=== PATIENT | female | born 1945 | race Caucasian/White ===

== ENCOUNTER 2020-06-26 17:19 | Inpatient (IN) | payer MEDICARE ==
[2020-06-26] MEDS ORDERED: traMADol HCl 50 MG TAB PO PRN (18:41)
[2020-06-26] MEDS ORDERED: oxyCODONE 5 MG TAB PO SCH (21:00)
[2020-06-26] MEDS: oxyCODONE 5 MG TAB PO PRN (21:32)
[2020-06-26] MEDS: Pregabalin 50 MG CAP PO SCH (21:34)
[2020-06-26] MEDS: Atorvastatin Calcium 40 MG TAB PO SCH (21:36)
[2020-06-26] MEDS: Ibuprofen 200 MG TAB PO SCH (21:39)
[2020-06-26] MEDS: Cyclobenzaprine 10 MG TAB PO PRN (21:41)
[2020-06-26] MEDS: CLORAZEPATE DIPOTASSIUM 3.75 MG PO SCH (22:44)
[2020-06-26] MEDS: PRAZOSIN HCL 2 MG PO SCH (22:44)
[2020-06-26] MEDS: Acetaminophen 325 MG TAB PO SCH (23:45)
[2020-06-27 05:28] LABS: #Eosinphils 0.1 thou/uL (0.0-0.7); #Lymphocytes 0.6 thou/uL (1.20-3.40); #Monocytes 0.4 thou/uL (0.11-0.59); #Neutrophils 2.9 thou/uL (1.40-6.50); %Basophils 0.6 % (0.0-1.0); %Eosinophils 2.7 % (0.0-10.0); %Lymphocytes 14.9 % (21.0-51.0); %Monocytes 10.4 % (0.0-10.0); %Neutrophils 71.5 % (42.0-75.0); Hemoglobin 9.7 g/dL (12.0-16.0); Manual Diff?? NO; Mean Corpuscular HGB CONC 33.5 g/dL (32.0-36.0); Mean Corpuscular Hemoglobin 32.2 pg (27.0-31.0); Mean Corpuscular Volume 96.2 fL (78.0-98.0); Mean Platelet Volume 6.5 fL (7.4-10.4); Platelet Count 147 thou/uL (130-400); RBC Distribution Width 14.9 % (11.5-14.5); Red Blood Cell (RBC) Count 3.01 mill/uL (4.20-5.40)
[2020-06-27] MEDS: Mometasone/Formoterol 200/5 60 PUFF INH SCH ×2 (05:33→17:38)
[2020-06-27] MEDS: Acetaminophen 325 MG TAB PO SCH ×3 (05:36→17:38)
[2020-06-27] MEDS: Ibuprofen 200 MG TAB PO SCH ×3 (05:37→21:23)
[2020-06-27] MEDS: Rivaroxaban 10 MG TAB PO SCH (05:37)
[2020-06-27 05:41] LABS: ALT (SGPT) 7 U/L (8-55); AST (SGOT) 11 U/L (5-34); Albumin 2.7 g/dL (3.4-4.8); Alkaline Phosphatase 69 U/L (40-110); Anion Gap 10 mmol/L (10-20); BUN (Urea Nitrogen) 9 mg/dL (9.8-20.1); Bilirubin, Total 1.1 mg/dL (0.2-1.2); Calc. Creatinine Clearance 92 mL/min (70-130); Calcium 7.8 mg/dL (7.8-10.44); Carbon Dioxide 27 mmol/L (23-31); Chloride 102 mmol/L (98-107); Globulin 2.3 g/dL (2.4-3.5); Glucose 97 mg/dL (83-110); Potassium 4.2 mmol/L (3.5-5.1); Sodium 135 mmol/L (136-145)
[2020-06-27] MEDS ORDERED: Non-Formulary Item 1 EACH (Rivaroxaban [Xarelto] 20 MG Tablet) PO SCH (09:00)
[2020-06-27] MEDS ORDERED: Rivaroxaban 10 MG TAB PO SCH (09:00)
[2020-06-27] MEDS: Potassium Chloride 20 MEQ TAB PO SCH ×3 (09:04→17:39)
[2020-06-27] MEDS: Pregabalin 50 MG CAP PO SCH ×2 (09:04→20:37)
[2020-06-27] MEDS: Multivitamin W/ Minerals 1 TAB PO SCH (09:04)
[2020-06-27] MEDS: Venlafaxine HCl XR 75 MG CAP PO SCH (09:04)
[2020-06-27] MEDS: Fluticasone Propionate Nasal Spray 16 gm Bottle NASAL SCH (09:05)
[2020-06-27] MEDS: PRAZOSIN HCL 2 MG PO SCH ×2 (09:06→20:29)
[2020-06-27] MEDS: oxyCODONE 5 MG TAB PO PRN ×2 (09:12→17:45)
[2020-06-27] MEDS: CLORAZEPATE DIPOTASSIUM 3.75 MG PO SCH (20:29)
[2020-06-27] MEDS: Atorvastatin Calcium 40 MG TAB PO SCH (20:37)
[2020-06-28] MEDS: Acetaminophen 325 MG TAB PO SCH ×4 (00:38→18:11)
[2020-06-28] MEDS: Ibuprofen 200 MG TAB PO SCH ×3 (05:42→21:31)
[2020-06-28] MEDS: Mometasone/Formoterol 200/5 60 PUFF INH SCH ×2 (05:43→18:13)
[2020-06-28] MEDS: Rivaroxaban 10 MG TAB PO SCH (05:43)
[2020-06-28] MEDS: Pregabalin 50 MG CAP PO SCH ×2 (08:39→21:30)
[2020-06-28] MEDS: Venlafaxine HCl XR 75 MG CAP PO SCH (08:39)
[2020-06-28] MEDS: Fluticasone Propionate Nasal Spray 16 gm Bottle NASAL SCH (08:39)
[2020-06-28] MEDS: Multivitamin W/ Minerals 1 TAB PO SCH (08:39)
[2020-06-28] MEDS: Potassium Chloride 20 MEQ TAB PO SCH ×2 (08:40→18:15)
[2020-06-28] MEDS: PRAZOSIN HCL 2 MG PO SCH ×2 (08:40→21:30)
[2020-06-28] MEDS: oxyCODONE 5 MG TAB PO PRN (10:07)
[2020-06-28] MEDS: CLORAZEPATE DIPOTASSIUM 3.75 MG PO SCH (21:30)
[2020-06-28] MEDS: Atorvastatin Calcium 40 MG TAB PO SCH (21:32)
[2020-06-28] MEDS: Triamcinolone 0.1% Cream 15 GM TUBE TOP PRN (21:36)
[2020-06-29] MEDS: Acetaminophen 325 MG TAB PO SCH ×4 (00:49→18:17)
[2020-06-29] MEDS: Ibuprofen 200 MG TAB PO SCH ×3 (05:14→21:10)
[2020-06-29] MEDS: Rivaroxaban 10 MG TAB PO SCH (05:16)
[2020-06-29] MEDS: Mometasone/Formoterol 200/5 60 PUFF INH SCH ×2 (05:16→18:18)
[2020-06-29] MEDS: Multivitamin W/ Minerals 1 TAB PO SCH (08:33)
[2020-06-29] MEDS: Fluticasone Propionate Nasal Spray 16 gm Bottle NASAL SCH (08:33)
[2020-06-29] MEDS: PRAZOSIN HCL 2 MG PO SCH ×2 (08:34→21:19)
[2020-06-29] MEDS: Pregabalin 50 MG CAP PO SCH ×2 (08:34→21:10)
[2020-06-29] MEDS: Venlafaxine HCl XR 75 MG CAP PO SCH (08:36)
[2020-06-29] MEDS: oxyCODONE 5 MG TAB PO PRN (08:36)
[2020-06-29] MEDS: Atorvastatin Calcium 40 MG TAB PO SCH (21:10)
[2020-06-29] MEDS: CLORAZEPATE DIPOTASSIUM 3.75 MG PO SCH (21:24)
[2020-06-30] MEDS: Acetaminophen 325 MG TAB PO SCH ×5 (00:52→23:26)
[2020-06-30] MEDS: Ibuprofen 200 MG TAB PO SCH ×3 (06:00→20:22)
[2020-06-30] MEDS: Rivaroxaban 10 MG TAB PO SCH (06:02)
[2020-06-30] MEDS: Mometasone/Formoterol 200/5 60 PUFF INH SCH ×2 (06:02→18:47)
[2020-06-30] MEDS: Multivitamin W/ Minerals 1 TAB PO SCH (08:20)
[2020-06-30] MEDS: Venlafaxine HCl XR 75 MG CAP PO SCH (08:21)
[2020-06-30] MEDS: Pregabalin 50 MG CAP PO SCH ×2 (08:21→20:20)
[2020-06-30] MEDS: Fluticasone Propionate Nasal Spray 16 gm Bottle NASAL SCH (08:24)
[2020-06-30] MEDS: PRAZOSIN HCL 2 MG PO SCH ×2 (08:25→20:22)
[2020-06-30] MEDS: oxyCODONE 5 MG TAB PO PRN (19:06)
[2020-06-30] MEDS: Atorvastatin Calcium 40 MG TAB PO SCH (20:22)
[2020-06-30] MEDS: CLORAZEPATE DIPOTASSIUM 3.75 MG PO SCH (20:22)
[2020-07-01] MEDS: Acetaminophen 325 MG TAB PO SCH ×3 (05:29→17:54)
[2020-07-01] MEDS: Ibuprofen 200 MG TAB PO SCH ×3 (05:30→21:25)
[2020-07-01] MEDS: Rivaroxaban 10 MG TAB PO SCH (05:31)
[2020-07-01] MEDS: Mometasone/Formoterol 200/5 60 PUFF INH SCH ×2 (05:32→17:54)
[2020-07-01 06:41] LABS: #Eosinphils 0.1 thou/uL (0.0-0.7); #Lymphocytes 0.7 thou/uL (1.20-3.40); #Monocytes 0.2 thou/uL (0.11-0.59); #Neutrophils 2.6 thou/uL (1.40-6.50); %Basophils 0.6 % (0.0-1.0); %Eosinophils 1.9 % (0.0-10.0); %Monocytes 6.2 % (0.0-10.0); %Neutrophils 72.2 % (42.0-75.0); Hemoglobin 9.5 g/dL (12.0-16.0); Mean Corpuscular HGB CONC 32.5 g/dL (32.0-36.0); Mean Corpuscular Hemoglobin 31.3 pg (27.0-31.0); Mean Corpuscular Volume 96.3 fL (78.0-98.0); Mean Platelet Volume 7.2 fL (7.4-10.4); Platelet Count 144 thou/uL (130-400); RBC Distribution Width 14.9 % (11.5-14.5); Red Blood Cell (RBC) Count 3.03 mill/uL (4.20-5.40); White Blood Cell (WBC) Count 3.6 thou/uL (4.8-10.8)
[2020-07-01 06:56] LABS: ALT (SGPT) 7 U/L (8-55); AST (SGOT) 12 U/L (5-34); Albumin 2.6 g/dL (3.4-4.8); Alkaline Phosphatase 76 U/L (40-110); Anion Gap 9 mmol/L (10-20); BUN (Urea Nitrogen) 12 mg/dL (9.8-20.1); Bilirubin, Total 0.7 mg/dL (0.2-1.2); Calc. Creatinine Clearance 90 mL/min (70-130); Calcium 7.7 mg/dL (7.8-10.44); Carbon Dioxide 27 mmol/L (23-31); Chloride 102 mmol/L (98-107); Globulin 2.2 g/dL (2.4-3.5); Glucose 108 mg/dL (83-110); Potassium 3.7 mmol/L (3.5-5.1); Protein, Total 4.8 g/dL (5.8-8.1); Sodium 134 mmol/L (136-145)
[2020-07-01] MEDS: Fluticasone Propionate Nasal Spray 16 gm Bottle NASAL SCH (08:33)
[2020-07-01] MEDS: Docusate 100 MG CAP PO SCH ×2 (08:34→21:25)
[2020-07-01] MEDS: Venlafaxine HCl XR 75 MG CAP PO SCH (08:34)
[2020-07-01] MEDS: Pregabalin 50 MG CAP PO SCH ×2 (08:34→21:26)
[2020-07-01] MEDS: Multivitamin W/ Minerals 1 TAB PO SCH (08:34)
[2020-07-01] MEDS: Polyethylene Glycol 3350 17 GM Packet PO SCH ×2 (08:35→21:28)
[2020-07-01] MEDS: PRAZOSIN HCL 2 MG PO SCH ×2 (08:44→21:28)
[2020-07-01] MEDS: oxyCODONE 5 MG TAB PO PRN (08:47)
[2020-07-01] MEDS ORDERED: Magnesium Citrate 300 ML BOT PO SCH (14:00)
[2020-07-01] MEDS ORDERED: Fleet Enema 133 ML BOT PR SCH (18:15)
[2020-07-01] MEDS: Atorvastatin Calcium 40 MG TAB PO SCH (21:27)
[2020-07-01] MEDS: CLORAZEPATE DIPOTASSIUM 3.75 MG PO SCH (21:27)
[2020-07-02] MEDS: Acetaminophen 325 MG TAB PO SCH ×4 (00:10→17:46)
[2020-07-02] MEDS: Ibuprofen 200 MG TAB PO SCH ×3 (05:44→21:20)
[2020-07-02] MEDS: Rivaroxaban 10 MG TAB PO SCH (05:46)
[2020-07-02] MEDS: Mometasone/Formoterol 200/5 60 PUFF INH SCH ×2 (05:52→17:46)
[2020-07-02] MEDS: Multivitamin W/ Minerals 1 TAB PO SCH (09:13)
[2020-07-02] MEDS: Fluticasone Propionate Nasal Spray 16 gm Bottle NASAL SCH (09:13)
[2020-07-02] MEDS: Docusate 100 MG CAP PO SCH ×2 (09:13→21:20)
[2020-07-02] MEDS: Venlafaxine HCl XR 75 MG CAP PO SCH (09:13)
[2020-07-02] MEDS: Pregabalin 50 MG CAP PO SCH ×2 (09:13→21:18)
[2020-07-02] MEDS: Polyethylene Glycol 3350 17 GM Packet PO SCH ×2 (09:14→21:22)
[2020-07-02] MEDS: PRAZOSIN HCL 2 MG PO SCH ×2 (09:15→21:17)
[2020-07-02] MEDS: CLORAZEPATE DIPOTASSIUM 3.75 MG PO SCH (21:17)
[2020-07-02] MEDS: Cyclobenzaprine 10 MG TAB PO PRN (21:19)
[2020-07-02] MEDS: Atorvastatin Calcium 40 MG TAB PO SCH (21:20)
[2020-07-03] MEDS: Acetaminophen 325 MG TAB PO SCH ×5 (00:30→23:48)
[2020-07-03] MEDS: Ibuprofen 200 MG TAB PO SCH ×3 (06:22→20:40)
[2020-07-03] MEDS: Rivaroxaban 10 MG TAB PO SCH (06:23)
[2020-07-03] MEDS: Mometasone/Formoterol 200/5 60 PUFF INH SCH ×2 (08:47→17:46)
[2020-07-03] MEDS: Nicotine 21 MG PATCH TD SCH (08:48)
[2020-07-03] MEDS: Venlafaxine HCl XR 75 MG CAP PO SCH (08:49)
[2020-07-03] MEDS: Pregabalin 50 MG CAP PO SCH ×2 (08:50→20:37)
[2020-07-03] MEDS: Docusate 100 MG CAP PO SCH ×2 (08:50→20:39)
[2020-07-03] MEDS: Multivitamin W/ Minerals 1 TAB PO SCH (08:51)
[2020-07-03] MEDS: Fluticasone Propionate Nasal Spray 16 gm Bottle NASAL SCH (08:52)
[2020-07-03] MEDS: Polyethylene Glycol 3350 17 GM Packet PO SCH ×2 (08:54→20:39)
[2020-07-03] MEDS: PRAZOSIN HCL 2 MG PO SCH ×2 (08:55→20:38)
[2020-07-03] MEDS: oxyCODONE 5 MG TAB PO PRN (18:08)
[2020-07-03] MEDS: Sulfameth/Trimethoprim DS 800-160mg TAB PO SCH (20:34)
[2020-07-03] MEDS: CLORAZEPATE DIPOTASSIUM 3.75 MG PO SCH (20:38)
[2020-07-03] MEDS: Atorvastatin Calcium 40 MG TAB PO SCH (20:39)
[2020-07-04] MEDS: Rivaroxaban 10 MG TAB PO SCH (05:10)
[2020-07-04] MEDS: Acetaminophen 325 MG TAB PO SCH ×4 (05:10→23:50)
[2020-07-04] MEDS: Ibuprofen 200 MG TAB PO SCH ×3 (05:11→21:12)
[2020-07-04] MEDS: Mometasone/Formoterol 200/5 60 PUFF INH SCH ×2 (05:11→17:52)
[2020-07-04] MEDS: oxyCODONE 5 MG TAB PO PRN ×2 (05:20→16:47)
[2020-07-04] MEDS: Docusate 100 MG CAP PO SCH ×2 (08:36→21:31)
[2020-07-04] MEDS: Multivitamin W/ Minerals 1 TAB PO SCH (08:36)
[2020-07-04] MEDS: Nicotine 21 MG PATCH TD SCH (08:36)
[2020-07-04] MEDS: Pregabalin 50 MG CAP PO SCH ×2 (08:37→21:14)
[2020-07-04] MEDS: Polyethylene Glycol 3350 17 GM Packet PO SCH ×2 (08:37→21:30)
[2020-07-04] MEDS: Sulfameth/Trimethoprim DS 800-160mg TAB PO SCH ×2 (08:39→21:12)
[2020-07-04] MEDS: Venlafaxine HCl XR 75 MG CAP PO SCH (08:39)
[2020-07-04] MEDS: PRAZOSIN HCL 2 MG PO SCH ×2 (08:57→21:32)
[2020-07-04] MEDS: Fluticasone Propionate Nasal Spray 16 gm Bottle NASAL SCH (08:58)
[2020-07-04 12:02] LABS: #Eosinphils 0.1 thou/uL (0.0-0.7); #Lymphocytes 0.6 thou/uL (1.20-3.40); #Monocytes 0.3 thou/uL (0.11-0.59); #Neutrophils 1.9 thou/uL (1.40-6.50); %Basophils 0.9 % (0.0-1.0); %Eosinophils 1.8 % (0.0-10.0); %Lymphocytes 20.4 % (21.0-51.0); %Monocytes 9.6 % (0.0-10.0); %Neutrophils 67.3 % (42.0-75.0); Hemoglobin 11.3 g/dL (12.0-16.0); Mean Corpuscular Hemoglobin 31.5 pg (27.0-31.0); Mean Corpuscular Volume 95.3 fL (78.0-98.0); Mean Platelet Volume 6.3 fL (7.4-10.4); Platelet Count 163 thou/uL (130-400); RBC Distribution Width 14.4 % (11.5-14.5); Red Blood Cell (RBC) Count 3.59 mill/uL (4.20-5.40); White Blood Cell (WBC) Count 2.8 thou/uL (4.8-10.8)
[2020-07-04 12:14] LABS: Anion Gap 10 mmol/L (10-20); BUN (Urea Nitrogen) 10 mg/dL (9.8-20.1); Calc. Creatinine Clearance 91 mL/min (70-130); Calcium 8.2 mg/dL (7.8-10.44); Carbon Dioxide 27 mmol/L (23-31); Chloride 103 mmol/L (98-107); Glucose 105 mg/dL (83-110); Sodium 136 mmol/L (136-145)
[2020-07-04] MEDS: Atorvastatin Calcium 40 MG TAB PO SCH (21:12)
[2020-07-04] MEDS: CLORAZEPATE DIPOTASSIUM 3.75 MG PO SCH (21:32)
[2020-07-05] MEDS: Triamcinolone 0.1% Cream 15 GM TUBE TOP PRN (03:44)
[2020-07-05] MEDS: Rivaroxaban 10 MG TAB PO SCH (06:02)
[2020-07-05] MEDS: oxyCODONE 5 MG TAB PO PRN ×2 (06:02→20:37)
[2020-07-05] MEDS: Acetaminophen 325 MG TAB PO SCH ×5 (06:05→21:36)
[2020-07-05] MEDS: Ibuprofen 200 MG TAB PO SCH ×4 (06:05→21:36)
[2020-07-05] MEDS: Mometasone/Formoterol 200/5 60 PUFF INH SCH ×2 (06:06→17:33)
[2020-07-05] MEDS: Nicotine 21 MG PATCH TD SCH (09:13)
[2020-07-05] MEDS: Docusate 100 MG CAP PO SCH ×2 (09:13→20:29)
[2020-07-05] MEDS: Multivitamin W/ Minerals 1 TAB PO SCH (09:13)
[2020-07-05] MEDS: Fluticasone Propionate Nasal Spray 16 gm Bottle NASAL SCH (09:13)
[2020-07-05] MEDS: Polyethylene Glycol 3350 17 GM Packet PO SCH ×2 (09:14→20:29)
[2020-07-05] MEDS: Pregabalin 50 MG CAP PO SCH ×2 (09:14→20:38)
[2020-07-05] MEDS: PRAZOSIN HCL 2 MG PO SCH ×2 (09:14→20:39)
[2020-07-05] MEDS: Sulfameth/Trimethoprim DS 800-160mg TAB PO SCH ×2 (09:17→20:38)
[2020-07-05] MEDS: Venlafaxine HCl XR 75 MG CAP PO SCH (09:17)
[2020-07-05] MEDS: CLORAZEPATE DIPOTASSIUM 3.75 MG PO SCH (20:37)
[2020-07-05] MEDS: Atorvastatin Calcium 40 MG TAB PO SCH (20:38)
[2020-07-06] MEDS: oxyCODONE 5 MG TAB PO PRN ×2 (06:21→18:03)
[2020-07-06] MEDS: Rivaroxaban 10 MG TAB PO SCH (06:22)
[2020-07-06] MEDS: Mometasone/Formoterol 200/5 60 PUFF INH SCH ×2 (06:22→17:57)
[2020-07-06] MEDS: Docusate 100 MG CAP PO SCH ×2 (08:28→20:48)
[2020-07-06] MEDS: Venlafaxine HCl XR 75 MG CAP PO SCH (08:28)
[2020-07-06] MEDS: Pregabalin 50 MG CAP PO SCH ×2 (08:29→20:47)
[2020-07-06] MEDS: Sulfameth/Trimethoprim DS 800-160mg TAB PO SCH ×2 (08:29→20:47)
[2020-07-06] MEDS: Multivitamin W/ Minerals 1 TAB PO SCH (08:29)
[2020-07-06] MEDS: Polyethylene Glycol 3350 17 GM Packet PO SCH ×2 (08:30→20:29)
[2020-07-06] MEDS: Fluticasone Propionate Nasal Spray 16 gm Bottle NASAL SCH (08:30)
[2020-07-06] MEDS: PRAZOSIN HCL 2 MG PO SCH ×2 (08:37→20:49)
[2020-07-06] MEDS: Nicotine 21 MG PATCH TD SCH (08:38)
[2020-07-06] MEDS: Acetaminophen 325 MG TAB PO SCH ×3 (11:05→23:07)
[2020-07-06] MEDS: Ibuprofen 200 MG TAB PO SCH ×2 (13:35→20:30)
[2020-07-06] MEDS: Atorvastatin Calcium 40 MG TAB PO SCH (20:48)
[2020-07-06] MEDS: CLORAZEPATE DIPOTASSIUM 3.75 MG PO SCH (20:48)
[2020-07-07] MEDS: Acetaminophen 325 MG TAB PO SCH ×3 (03:29→17:34)
[2020-07-07] MEDS: Ibuprofen 200 MG TAB PO SCH ×3 (03:30→21:25)
[2020-07-07] MEDS: Rivaroxaban 10 MG TAB PO SCH (05:58)
[2020-07-07] MEDS: Mometasone/Formoterol 200/5 60 PUFF INH SCH ×2 (05:58→17:34)
[2020-07-07] MEDS: oxyCODONE 5 MG TAB PO PRN ×2 (05:59→17:39)
[2020-07-07] MEDS: PRAZOSIN HCL 2 MG PO SCH ×2 (10:25→21:28)
[2020-07-07] MEDS: Venlafaxine HCl XR 75 MG CAP PO SCH (10:26)
[2020-07-07] MEDS: Pregabalin 50 MG CAP PO SCH ×2 (10:26→21:26)
[2020-07-07] MEDS: Sulfameth/Trimethoprim DS 800-160mg TAB PO SCH ×2 (10:26→21:26)
[2020-07-07] MEDS: Docusate 100 MG CAP PO SCH ×2 (10:27→21:26)
[2020-07-07] MEDS: Nicotine 21 MG PATCH TD SCH (10:28)
[2020-07-07] MEDS: Multivitamin W/ Minerals 1 TAB PO SCH (10:28)
[2020-07-07] MEDS: Fluticasone Propionate Nasal Spray 16 gm Bottle NASAL SCH (10:28)
[2020-07-07] MEDS: Polyethylene Glycol 3350 17 GM Packet PO SCH ×2 (10:29→21:30)
[2020-07-07] MEDS: Atorvastatin Calcium 40 MG TAB PO SCH (21:26)
[2020-07-07] MEDS: CLORAZEPATE DIPOTASSIUM 3.75 MG PO SCH (21:28)
[2020-07-08] MEDS: Acetaminophen 325 MG TAB PO SCH ×4 (01:42→17:43)
[2020-07-08] MEDS: Rivaroxaban 10 MG TAB PO SCH (05:21)
[2020-07-08] MEDS: Ibuprofen 200 MG TAB PO SCH ×3 (05:22→21:19)
[2020-07-08] MEDS: Mometasone/Formoterol 200/5 60 PUFF INH SCH ×2 (05:23→17:45)
[2020-07-08] MEDS: Nicotine 21 MG PATCH TD SCH (08:58)
[2020-07-08] MEDS: Multivitamin W/ Minerals 1 TAB PO SCH (08:59)
[2020-07-08] MEDS: Pregabalin 50 MG CAP PO SCH ×2 (08:59→21:20)
[2020-07-08] MEDS: Sulfameth/Trimethoprim DS 800-160mg TAB PO SCH ×2 (08:59→21:20)
[2020-07-08] MEDS: Docusate 100 MG CAP PO SCH ×2 (09:01→21:20)
[2020-07-08] MEDS: Venlafaxine HCl XR 75 MG CAP PO SCH (09:01)
[2020-07-08] MEDS: Fluticasone Propionate Nasal Spray 16 gm Bottle NASAL SCH (09:02)
[2020-07-08] MEDS: Polyethylene Glycol 3350 17 GM Packet PO SCH ×2 (09:04→21:22)
[2020-07-08] MEDS: oxyCODONE 5 MG TAB PO PRN (09:06)
[2020-07-08] MEDS: PRAZOSIN HCL 2 MG PO SCH ×2 (09:40→21:21)
[2020-07-08] MEDS: Atorvastatin Calcium 40 MG TAB PO SCH (21:20)
[2020-07-08] MEDS: CLORAZEPATE DIPOTASSIUM 3.75 MG PO SCH (21:21)
[2020-07-09] MEDS: Acetaminophen 325 MG TAB PO SCH ×5 (00:19→23:29)
[2020-07-09] MEDS: Mometasone/Formoterol 200/5 60 PUFF INH SCH ×2 (05:48→17:18)
[2020-07-09] MEDS: Rivaroxaban 10 MG TAB PO SCH (05:50)
[2020-07-09] MEDS: Ibuprofen 200 MG TAB PO SCH ×3 (05:52→21:35)
[2020-07-09] MEDS: oxyCODONE 5 MG TAB PO PRN (06:16)
[2020-07-09] MEDS: Multivitamin W/ Minerals 1 TAB PO SCH (09:08)
[2020-07-09] MEDS: Fluticasone Propionate Nasal Spray 16 gm Bottle NASAL SCH (09:08)
[2020-07-09] MEDS: Nicotine 21 MG PATCH TD SCH (09:08)
[2020-07-09] MEDS: Polyethylene Glycol 3350 17 GM Packet PO SCH ×2 (09:09→21:37)
[2020-07-09] MEDS: Pregabalin 50 MG CAP PO SCH ×2 (09:09→21:34)
[2020-07-09] MEDS: PRAZOSIN HCL 2 MG PO SCH ×2 (09:09→21:38)
[2020-07-09] MEDS: Sulfameth/Trimethoprim DS 800-160mg TAB PO SCH ×2 (09:10→21:36)
[2020-07-09] MEDS: Venlafaxine HCl XR 75 MG CAP PO SCH (09:10)
[2020-07-09] MEDS: Docusate 100 MG CAP PO SCH ×2 (09:11→21:34)
[2020-07-09] MEDS: buPROPion HCl 100 MG TAB PO SCH (21:33)
[2020-07-09] MEDS: Atorvastatin Calcium 40 MG TAB PO SCH (21:34)
[2020-07-09] MEDS: CLORAZEPATE DIPOTASSIUM 3.75 MG PO SCH (21:37)
[2020-07-09] MEDS: Melatonin 3 MG TAB PO PRN (21:40)
[2020-07-10] MEDS: Mometasone/Formoterol 200/5 60 PUFF INH SCH ×2 (05:16→17:40)
[2020-07-10] MEDS: Acetaminophen 325 MG TAB PO SCH ×3 (05:17→17:40)
[2020-07-10] MEDS: Ibuprofen 200 MG TAB PO SCH ×3 (05:18→21:42)
[2020-07-10] MEDS: Rivaroxaban 10 MG TAB PO SCH (05:19)
[2020-07-10 05:55] VITALS: BMI 34.9
[2020-07-10] MEDS: Docusate 100 MG CAP PO SCH ×2 (09:33→21:43)
[2020-07-10] MEDS: Fluticasone Propionate Nasal Spray 16 gm Bottle NASAL SCH (09:33)
[2020-07-10] MEDS: buPROPion HCl 100 MG TAB PO SCH ×2 (09:33→21:43)
[2020-07-10] MEDS: Multivitamin W/ Minerals 1 TAB PO SCH (09:34)
[2020-07-10] MEDS: Pregabalin 50 MG CAP PO SCH ×2 (09:34→21:41)
[2020-07-10] MEDS: Polyethylene Glycol 3350 17 GM Packet PO SCH ×2 (09:34→21:43)
[2020-07-10] MEDS: Nicotine 21 MG PATCH TD SCH (09:34)
[2020-07-10] MEDS: PRAZOSIN HCL 2 MG PO SCH ×2 (09:34→22:08)
[2020-07-10] MEDS: Sulfameth/Trimethoprim DS 800-160mg TAB PO SCH ×2 (09:35→21:43)
[2020-07-10] MEDS: Venlafaxine HCl XR 75 MG CAP PO SCH (09:36)
[2020-07-10] MEDS: oxyCODONE 5 MG TAB PO PRN (17:42)
[2020-07-10] MEDS: Atorvastatin Calcium 40 MG TAB PO SCH (21:43)
[2020-07-10] MEDS: CLORAZEPATE DIPOTASSIUM 3.75 MG PO SCH (22:07)
[2020-07-11] MEDS: Acetaminophen 325 MG TAB PO SCH ×5 (00:33→18:04)
[2020-07-11] MEDS: Mometasone/Formoterol 200/5 60 PUFF INH SCH ×2 (06:07→18:04)
[2020-07-11] MEDS: Ibuprofen 200 MG TAB PO SCH ×3 (06:09→21:50)
[2020-07-11] MEDS: Rivaroxaban 10 MG TAB PO SCH (06:09)
[2020-07-11] MEDS: oxyCODONE 5 MG TAB PO PRN ×2 (06:18→18:28)
[2020-07-11 06:28] LABS: Hemoglobin 11.4 g/dL (12.0-16.0); Platelet Count 123 thou/uL (130-400)
[2020-07-11] MEDS: PRAZOSIN HCL 2 MG PO SCH ×2 (08:40→21:52)
[2020-07-11] MEDS: Nicotine 21 MG PATCH TD SCH (08:40)
[2020-07-11] MEDS: Polyethylene Glycol 3350 17 GM Packet PO SCH ×2 (08:40→21:51)
[2020-07-11] MEDS: buPROPion HCl 100 MG TAB PO SCH ×2 (08:41→21:50)
[2020-07-11] MEDS: Docusate 100 MG CAP PO SCH ×2 (08:41→21:51)
[2020-07-11] MEDS: Pregabalin 50 MG CAP PO SCH ×2 (08:41→21:49)
[2020-07-11] MEDS: Venlafaxine HCl XR 75 MG CAP PO SCH (08:41)
[2020-07-11] MEDS: Fluticasone Propionate Nasal Spray 16 gm Bottle NASAL SCH (08:42)
[2020-07-11] MEDS: Sulfameth/Trimethoprim DS 800-160mg TAB PO SCH ×2 (08:42→21:49)
[2020-07-11] MEDS: Multivitamin W/ Minerals 1 TAB PO SCH (08:44)
[2020-07-11] MEDS: Melatonin 3 MG TAB PO PRN (21:50)
[2020-07-11] MEDS: Atorvastatin Calcium 40 MG TAB PO SCH (21:50)
[2020-07-11] MEDS: CLORAZEPATE DIPOTASSIUM 3.75 MG PO SCH (21:52)
[2020-07-12] MEDS: Acetaminophen 325 MG TAB PO SCH ×5 (00:07→23:47)
[2020-07-12 05:43] LABS: Platelet Count 115 thou/uL (130-400)
[2020-07-12] MEDS: Ibuprofen 200 MG TAB PO SCH ×3 (06:04→21:47)
[2020-07-12] MEDS: Rivaroxaban 10 MG TAB PO SCH (06:05)
[2020-07-12] MEDS: Mometasone/Formoterol 200/5 60 PUFF INH SCH ×2 (06:05→17:52)
[2020-07-12] MEDS: Nicotine 21 MG PATCH TD SCH (08:43)
[2020-07-12] MEDS: Fluticasone Propionate Nasal Spray 16 gm Bottle NASAL SCH (08:43)
[2020-07-12] MEDS: Venlafaxine HCl XR 75 MG CAP PO SCH (08:44)
[2020-07-12] MEDS: Sulfameth/Trimethoprim DS 800-160mg TAB PO SCH ×2 (08:45→21:49)
[2020-07-12] MEDS: Pregabalin 50 MG CAP PO SCH ×2 (08:45→21:46)
[2020-07-12] MEDS: Docusate 100 MG CAP PO SCH ×2 (08:46→21:47)
[2020-07-12] MEDS: buPROPion HCl 100 MG TAB PO SCH ×2 (08:46→21:46)
[2020-07-12] MEDS: Polyethylene Glycol 3350 17 GM Packet PO SCH ×2 (08:46→21:49)
[2020-07-12] MEDS: Multivitamin W/ Minerals 1 TAB PO SCH (08:46)
[2020-07-12] MEDS: PRAZOSIN HCL 2 MG PO SCH ×2 (08:46→21:48)
[2020-07-12 08:52] LABS: ALT (SGPT) 10 U/L (8-55); AST (SGOT) 15 U/L (5-34); Albumin 3.2 g/dL (3.4-4.8); Alkaline Phosphatase 89 U/L (40-110); Anion Gap 13 mmol/L (10-20); BUN (Urea Nitrogen) 13 mg/dL (9.8-20.1); Bilirubin, Total 0.6 mg/dL (0.2-1.2); Calc. Creatinine Clearance 75 mL/min (70-130); Calcium 8.2 mg/dL (7.8-10.44); Carbon Dioxide 24 mmol/L (23-31); Chloride 103 mmol/L (98-107); Globulin 2.4 g/dL (2.4-3.5); Glucose 83 mg/dL (83-110); Potassium 4.1 mmol/L (3.5-5.1); Protein, Total 5.6 g/dL (5.8-8.1); Sodium 136 mmol/L (136-145)
[2020-07-12] MEDS: oxyCODONE 5 MG TAB PO PRN ×2 (08:54→18:08)
[2020-07-12 08:57] LABS: #Eosinphils 0.1 thou/uL (0.0-0.7); #Lymphocytes 0.7 thou/uL (1.20-3.40); #Monocytes 0.3 thou/uL (0.11-0.59); #Neutrophils 1.6 thou/uL (1.40-6.50); %Eosinophils 3.1 % (0.0-10.0); %Lymphocytes 25.1 % (21.0-51.0); %Monocytes 9.7 % (0.0-10.0); %Neutrophils 61.2 % (42.0-75.0); Mean Corpuscular HGB CONC 32.4 g/dL (32.0-36.0); Mean Corpuscular Hemoglobin 30.6 pg (27.0-31.0); Mean Corpuscular Volume 94.3 fL (78.0-98.0); Mean Platelet Volume 6.9 fL (7.4-10.4); Platelet Count 117 thou/uL (130-400); RBC Distribution Width 13.3 % (11.5-14.5); Red Blood Cell (RBC) Count 3.61 mill/uL (4.20-5.40); White Blood Cell (WBC) Count 2.7 thou/uL (4.8-10.8)
[2020-07-12] MEDS: CLORAZEPATE DIPOTASSIUM 3.75 MG PO SCH (21:45)
[2020-07-12] MEDS: Melatonin 3 MG TAB PO PRN (21:46)
[2020-07-12] MEDS: Atorvastatin Calcium 40 MG TAB PO SCH (21:46)
[2020-07-13] MEDS: Mometasone/Formoterol 200/5 60 PUFF INH SCH ×2 (05:21→17:29)
[2020-07-13] MEDS: Rivaroxaban 10 MG TAB PO SCH (05:22)
[2020-07-13] MEDS: Acetaminophen 325 MG TAB PO SCH ×4 (05:22→23:42)
[2020-07-13] MEDS: Ibuprofen 200 MG TAB PO SCH ×3 (05:22→20:53)
[2020-07-13] MEDS: oxyCODONE 5 MG TAB PO PRN ×2 (05:26→13:12)
[2020-07-13] MEDS: Docusate 100 MG CAP PO SCH ×2 (09:32→20:54)
[2020-07-13] MEDS: Fluticasone Propionate Nasal Spray 16 gm Bottle NASAL SCH (09:32)
[2020-07-13] MEDS: buPROPion HCl 100 MG TAB PO SCH ×2 (09:32→20:52)
[2020-07-13] MEDS: Nicotine 21 MG PATCH TD SCH (09:33)
[2020-07-13] MEDS: Polyethylene Glycol 3350 17 GM Packet PO SCH ×2 (09:33→20:54)
[2020-07-13] MEDS: Multivitamin W/ Minerals 1 TAB PO SCH (09:33)
[2020-07-13] MEDS: PRAZOSIN HCL 2 MG PO SCH ×2 (09:33→20:54)
[2020-07-13] MEDS: Sulfameth/Trimethoprim DS 800-160mg TAB PO SCH ×2 (09:34→20:52)
[2020-07-13] MEDS: Pregabalin 50 MG CAP PO SCH ×2 (09:34→20:53)
[2020-07-13] MEDS: Venlafaxine HCl XR 75 MG CAP PO SCH (09:34)
[2020-07-13] MEDS: CLORAZEPATE DIPOTASSIUM 3.75 MG PO SCH (20:50)
[2020-07-13] MEDS: Atorvastatin Calcium 40 MG TAB PO SCH (20:52)
[2020-07-13] MEDS: Melatonin 3 MG TAB PO PRN (21:01)
[2020-07-14] MEDS: Mometasone/Formoterol 200/5 60 PUFF INH SCH ×2 (06:21→17:26)
[2020-07-14] MEDS: Acetaminophen 325 MG TAB PO SCH ×3 (06:21→17:25)
[2020-07-14] MEDS: Ibuprofen 200 MG TAB PO SCH ×3 (06:22→22:38)
[2020-07-14] MEDS: Rivaroxaban 10 MG TAB PO SCH (06:22)
[2020-07-14] MEDS: oxyCODONE 5 MG TAB PO PRN ×2 (07:05→15:23)
[2020-07-14] MEDS: Fluticasone Propionate Nasal Spray 16 gm Bottle NASAL SCH (09:42)
[2020-07-14] MEDS: buPROPion HCl 100 MG TAB PO SCH ×2 (09:42→22:37)
[2020-07-14] MEDS: Docusate 100 MG CAP PO SCH ×2 (09:42→22:37)
[2020-07-14] MEDS: Polyethylene Glycol 3350 17 GM Packet PO SCH ×2 (09:43→22:40)
[2020-07-14] MEDS: Multivitamin W/ Minerals 1 TAB PO SCH (09:43)
[2020-07-14] MEDS: Nicotine 21 MG PATCH TD SCH (09:43)
[2020-07-14] MEDS: Pregabalin 50 MG CAP PO SCH ×2 (09:44→22:40)
[2020-07-14] MEDS: PRAZOSIN HCL 2 MG PO SCH ×2 (09:44→22:51)
[2020-07-14] MEDS: Sulfameth/Trimethoprim DS 800-160mg TAB PO SCH ×2 (09:45→22:38)
[2020-07-14] MEDS: Venlafaxine HCl XR 75 MG CAP PO SCH (09:46)
[2020-07-14] MEDS: Atorvastatin Calcium 40 MG TAB PO SCH (22:37)
[2020-07-14] MEDS: Melatonin 3 MG TAB PO PRN (22:42)
[2020-07-14] MEDS: CLORAZEPATE DIPOTASSIUM 3.75 MG PO SCH (22:53)
[2020-07-15] MEDS: Acetaminophen 325 MG TAB PO SCH ×3 (00:55→12:21)
[2020-07-15 05:53] LABS: Hemoglobin 10.5 g/dL (12.0-16.0); Platelet Count 105 thou/uL (130-400)
[2020-07-15] MEDS: Ibuprofen 200 MG TAB PO SCH ×2 (06:07→14:32)
[2020-07-15] MEDS: Rivaroxaban 10 MG TAB PO SCH (06:11)
[2020-07-15] MEDS: Mometasone/Formoterol 200/5 60 PUFF INH SCH (06:11)
[2020-07-15] MEDS: oxyCODONE 5 MG TAB PO PRN ×2 (06:12→17:03)
[2020-07-15 07:29] VITALS: BP 137/63; TEMP 96.2
[2020-07-15] MEDS: Venlafaxine HCl XR 75 MG CAP PO SCH (09:54)
[2020-07-15] MEDS: Multivitamin W/ Minerals 1 TAB PO SCH (09:55)
[2020-07-15] MEDS: Docusate 100 MG CAP PO SCH (09:55)
[2020-07-15] MEDS: Sulfameth/Trimethoprim DS 800-160mg TAB PO SCH (09:55)
[2020-07-15] MEDS: Nicotine 21 MG PATCH TD SCH (09:55)
[2020-07-15] MEDS: Pregabalin 50 MG CAP PO SCH (09:56)
[2020-07-15] MEDS: buPROPion HCl 100 MG TAB PO SCH (09:58)
[2020-07-15] MEDS: Fluticasone Propionate Nasal Spray 16 gm Bottle NASAL SCH (09:58)
[2020-07-15] MEDS: Polyethylene Glycol 3350 17 GM Packet PO SCH (09:59)
[2020-07-15] MEDS: PRAZOSIN HCL 2 MG PO SCH (09:59)
== END 2020-07-15 17:10 | disposition home health service (06) | DRG 560 ==
LOC: NAV ACUTE 17:19
PROVIDERS: ADMIT Internal Medicine; ATTEND Internal Medicine
DX: S72.001D Fracture of unspecified part of neck of right femur, subsequent encounter for closed fracture with routine healing (principal); I82.509 Chronic embolism and thrombosis of unspecified deep veins of unspecified lower extremity; Z79.01 Long term (current) use of anticoagulants; G89.29 Other chronic pain; F17.210 Nicotine dependence, cigarettes, uncomplicated; M21.371 Foot drop, right foot; G62.9 Polyneuropathy, unspecified; M41.9 Scoliosis, unspecified; K59.09 Other constipation; J44.9 Chronic obstructive pulmonary disease, unspecified; K21.9 Gastro-esophageal reflux disease without esophagitis; F32.9 Major depressive disorder, single episode, unspecified; F41.9 Anxiety disorder, unspecified; W19.XXXD Unspecified fall, subsequent encounter; R53.81 Other malaise; F19.10 Other psychoactive substance abuse, uncomplicated
CPT/HCPCS: 80048; 80053; 82565; 85014; 85018; 85025; 85049; 94640; 94664; J7620

== ENCOUNTER 2020-07-15 11:17 | Outpatient (CLI) | payer MEDICARE ==
[2020-07-16 03:55] LABS: SARS-CoV-2 PCR by NAA Not Detected (NotDetected)
== END 2020-07-15 11:18 | disposition home or self-care (01) ==
LOC: NAV LAB 11:17
PROVIDERS: ATTEND Surgery
DX: Z01.812 Encounter for preprocedural laboratory examination (principal); C50.912 Malignant neoplasm of unspecified site of left female breast; Z20.822 Contact with and (suspected) exposure to COVID-19
CPT/HCPCS: 87635; U0003; U0005